=== PATIENT | female | born 1950 ===

== ENCOUNTER 2021-10-19 06:00 | Day surgery (SDC) | payer OTHER ==
[~2021-10-19 06:00] MED LIST: ATORVASTATIN CA80 MG PO; COZAAR25 MG PO; GABAPENTIN300 M2 PO; PROTONIX20 MG PO
[2021-10-19] MEDS ORDERED: MACROBID 100 M100 MG PO (10:09)
[2021-10-19] MEDS ORDERED: ULTRACET PO (10:10)
== END 2021-10-19 12:30 | disposition home or self-care (01) ==
LOC: CIR.AMB 06:00
PROVIDERS: ATTEND Obstetrics & Gynecology Gynecology
DX: N81.6 Rectocele (principal); K46.9 Unspecified abdominal hernia without obstruction or gangrene; M19.90 Unspecified osteoarthritis, unspecified site; F41.9 Anxiety disorder, unspecified; K21.9 Gastro-esophageal reflux disease without esophagitis; M41.9 Scoliosis, unspecified; E66.9 Obesity, unspecified; I10 Essential (primary) hypertension